=== PATIENT | male | born 1955 | race Caucasian/White ===

== ENCOUNTER 2025-02-16 21:30 | Inpatient (IN) | payer OTHER ==
[2025-02-16 22:21] LABS: #Basophils Less than 0.03 10x3/uL (0.0-0.2); #Eosinophils 0.03 10x3/uL (0.0-0.7); #Monocytes 0.36 10x3/uL (0.11-0.59); #Neutrophils 6.50 10x3/uL (1.40-6.50); %Basophils 0.3 % (0.0-1.0); %Eosinophils 0.4 % (0.0-10.0); %Lymphocytes 7.7 % (21.0-51.0); %Monocytes 4.8 % (0.0-10.0); %Neutrophils 86.5 % (42.0-75.0); Hematocrit 15.8 % (42.0-52.0); Hemoglobin 4.9 g/dL (14.0-18.0); Mean Corpuscular Hemoglobin 28.8 pg (27.0-31.0); Mean Corpuscular Volume 92.9 fL (78.0-98.0); Platelet Count 176 10x3/uL (130-400); Red Blood Cell (RBC) Count 1.70 mill/uL (4.70-6.10); White Blood Cell (WBC) Count 7.51 10x3/uL (4.8-10.8)
[2025-02-16] MEDS ORDERED: Pantoprazole 40 MG VIAL ONE (23:41)
[2025-02-17 01:34] LABS: ALT (SGPT) Less than 7 U/L (Less than 45); AST (SGOT) 12 U/L (11-34); Albumin 1.7 g/dL (3.1-4.5); Alkaline Phosphatase 27 U/L (40-110); Anion Gap 9 mmol/L (10-20); BUN (Urea Nitrogen) 17 mg/dL (8.4-25.7); Bilirubin, Total 0.1 mg/dL (0.3-1.2); CK (CPK) 42 U/L (30-200); Calc. Creatinine Clearance 0 mL/min (70-130); Calcium 4.6 mg/dL (7.8-10.44); Carbon Dioxide 12 mmol/L (23-31); Chloride 125 mmol/L (98-107); Globulin 1.8 g/dL (2.4-3.5); Glucose 58 mg/dL (80-115); Lipase 22 U/L (8-78); Potassium 1.6 mmol/L (3.5-5.1); Sodium 144 mmol/L (136-145)
[2025-02-17] MEDS ORDERED: Electrolyte Replacement Protocol 1 EACH FS SCH ×2 (02:30→02:45)
[2025-02-17] MEDS: Potassium Chloride 20 MEQ in Premix 1 BAG IVPB SCH (03:34)
[2025-02-17 03:50] LABS: Iron 23 ug/dL (65-175); Iron Binding Capacity, Total 326 mcg/dL (261-462)
[2025-02-17 03:51] LABS: #Basophils 0.05 10x3/uL (0.0-0.2); #Eosinophils Less than 0.03 10x3/uL (0.0-0.7); #Monocytes 0.67 10x3/uL (0.11-0.59); #Neutrophils 8.82 10x3/uL (1.40-6.50); %Basophils 0.5 % (0.0-1.0); %Eosinophils 0.1 % (0.0-10.0); %Lymphocytes 10.4 % (21.0-51.0); %Monocytes 6.3 % (0.0-10.0); %Neutrophils 82.4 % (42.0-75.0); Hematocrit 28.3 % (42.0-52.0); Hemoglobin 9.2 g/dL (14.0-18.0); Mean Corpuscular Hemoglobin 29.0 pg (27.0-31.0); Mean Corpuscular Volume 89.3 fL (78.0-98.0); Platelet Count 353 10x3/uL (130-400); Red Blood Cell (RBC) Count 3.17 mill/uL (4.70-6.10); White Blood Cell (WBC) Count 10.69 10x3/uL (4.8-10.8)
[2025-02-17 03:59] LABS: Anion Gap 17 mmol/L (10-20); BUN (Urea Nitrogen) 28 mg/dL (8.4-25.7); Calc. Creatinine Clearance 41 mL/min (70-130); Calcium 8.6 mg/dL (7.8-10.44); Carbon Dioxide 22 mmol/L (23-31); Chloride 110 mmol/L (98-107); Glucose 91 mg/dL (80-115); Magnesium 2.0 mg/dL (1.6-2.6); Potassium 2.6 mmol/L (3.5-5.1); Sodium 146 mmol/L (136-145)
[2025-02-17 04:18] LABS: Ferritin 26.71 ng/mL (22-322); Vitamin B12 410.0 pg/mL (211-911)
[2025-02-17] MEDS ORDERED: Pantoprazole 40 MG VIAL IVP SCH (09:00)
[2025-02-17] MEDS: Magnesium 2 GM/50 ML(in water) 2 GM in Premix 1 BAG IVPB SCH (09:27)
[2025-02-17] MEDS: Acetaminophen 325 MG TAB PO PRN (09:39)
[2025-02-17 09:56] LABS: #Basophils 0.07 10x3/uL (0.0-0.2); #Eosinophils 0.08 10x3/uL (0.0-0.7); #Monocytes 0.76 10x3/uL (0.11-0.59); #Neutrophils 9.03 10x3/uL (1.40-6.50); %Basophils 0.6 % (0.0-1.0); %Eosinophils 0.7 % (0.0-10.0); %Lymphocytes 9.9 % (21.0-51.0); %Monocytes 6.9 % (0.0-10.0); %Neutrophils 81.5 % (42.0-75.0); Hematocrit 31.1 % (42.0-52.0); Hemoglobin 10.0 g/dL (14.0-18.0); Mean Corpuscular Hemoglobin 28.6 pg (27.0-31.0); Mean Corpuscular Volume 88.9 fL (78.0-98.0); Platelet Count 337 10x3/uL (130-400); Red Blood Cell (RBC) Count 3.50 mill/uL (4.70-6.10); White Blood Cell (WBC) Count 11.08 10x3/uL (4.8-10.8)
[2025-02-17 10:15] LABS: Anion Gap 11 mmol/L (10-20); BUN (Urea Nitrogen) 28 mg/dL (8.4-25.7); Calc. Creatinine Clearance 48 mL/min (70-130); Calcium 8.9 mg/dL (7.8-10.44); Carbon Dioxide 24 mmol/L (23-31); Chloride 111 mmol/L (98-107); Glucose 116 mg/dL (80-115); Potassium 3.1 mmol/L (3.5-5.1); Sodium 143 mmol/L (136-145)
[2025-02-17 16:53] LABS: Hematocrit 30.6 % (42.0-52.0); Hemoglobin 9.9 g/dL (14.0-18.0)
[2025-02-17 17:41] LABS: ALT (SGPT) 10 U/L (Less than 45); AST (SGOT) 24 U/L (11-34); Albumin 3.1 g/dL (3.1-4.5); Alkaline Phosphatase 50 U/L (40-110); Anion Gap 10 mmol/L (10-20); BUN (Urea Nitrogen) 32 mg/dL (8.4-25.7); Bilirubin, Total 0.7 mg/dL (0.3-1.2); Calc. Creatinine Clearance 48 mL/min (70-130); Calcium 8.8 mg/dL (7.8-10.44); Carbon Dioxide 22 mmol/L (23-31); Chloride 114 mmol/L (98-107); Globulin 3.2 g/dL (2.4-3.5); Glucose 105 mg/dL (80-115); Magnesium 2.5 mg/dL (1.6-2.6); Potassium 3.3 mmol/L (3.5-5.1); Sodium 143 mmol/L (136-145)
[2025-02-18] MEDS: hydrALAZINE 20 MG/ML VIAL SLOW IVP SCH (00:08)
[2025-02-18] MEDS: cloNIDine 0.1 MG TAB PO SCH (01:57)
[2025-02-18 04:32] LABS: #Basophils 0.06 10x3/uL (0.0-0.2); #Eosinophils 0.04 10x3/uL (0.0-0.7); #Monocytes 0.92 10x3/uL (0.11-0.59); #Neutrophils 11.54 10x3/uL (1.40-6.50); %Basophils 0.4 % (0.0-1.0); %Eosinophils 0.3 % (0.0-10.0); %Lymphocytes 7.1 % (21.0-51.0); %Monocytes 6.8 % (0.0-10.0); %Neutrophils 85.0 % (42.0-75.0); Hematocrit 32.8 % (42.0-52.0); Hemoglobin 10.8 g/dL (14.0-18.0); Mean Corpuscular Hemoglobin 29.3 pg (27.0-31.0); Mean Corpuscular Volume 88.9 fL (78.0-98.0); Platelet Count 344 10x3/uL (130-400); Red Blood Cell (RBC) Count 3.69 mill/uL (4.70-6.10); White Blood Cell (WBC) Count 13.59 10x3/uL (4.8-10.8)
[2025-02-18 04:49] LABS: ALT (SGPT) 10 U/L (Less than 45); AST (SGOT) 31 U/L (11-34); Albumin 3.2 g/dL (3.1-4.5); Alkaline Phosphatase 52 U/L (40-110); Anion Gap 13 mmol/L (10-20); BUN (Urea Nitrogen) 21 mg/dL (8.4-25.7); Bilirubin, Total 0.8 mg/dL (0.3-1.2); Calc. Creatinine Clearance 75 mL/min (70-130); Calcium 8.6 mg/dL (7.8-10.44); Carbon Dioxide 24 mmol/L (23-31); Chloride 111 mmol/L (98-107); Globulin 3.4 g/dL (2.4-3.5); Glucose 108 mg/dL (80-115); Magnesium 2.0 mg/dL (1.6-2.6); Potassium 2.8 mmol/L (3.5-5.1); Sodium 145 mmol/L (136-145)
[2025-02-18] MEDS: Magnesium 2 GM/50 ML(in water) 2 GM in Premix 1 BAG IVPB SCH (09:52)
[2025-02-18] MEDS: Sertraline 25 MG TAB PO SCH (09:55)
[2025-02-18 13:55] LABS: Anion Gap 10 mmol/L (10-20); BUN (Urea Nitrogen) 19 mg/dL (8.4-25.7); Calc. Creatinine Clearance 86 mL/min (70-130); Calcium 8.7 mg/dL (7.8-10.44); Carbon Dioxide 22 mmol/L (23-31); Chloride 111 mmol/L (98-107); Glucose 99 mg/dL (80-115); Potassium 3.2 mmol/L (3.5-5.1); Sodium 140 mmol/L (136-145)
[2025-02-18] MEDS: Metoclopramide HCl 10 MG (2 mL) VIAL IVP SCH ×2 (15:42→21:37)
[2025-02-19 05:44] LABS: Magnesium 2.4 mg/dL (1.6-2.6); Potassium 3.3 mmol/L (3.5-5.1)
[2025-02-19 07:49] LABS: #Basophils 0.04 10x3/uL (0.0-0.2); #Eosinophils Less than 0.03 10x3/uL (0.0-0.7); #Monocytes 1.23 10x3/uL (0.11-0.59); #Neutrophils 13.57 10x3/uL (1.40-6.50); %Basophils 0.3 % (0.0-1.0); %Eosinophils 0.1 % (0.0-10.0); %Lymphocytes 5.9 % (21.0-51.0); %Monocytes 7.8 % (0.0-10.0); %Neutrophils 85.5 % (42.0-75.0); Hematocrit 33.4 % (42.0-52.0); Hemoglobin 10.6 g/dL (14.0-18.0); Mean Corpuscular Hemoglobin 28.7 pg (27.0-31.0); Mean Corpuscular Volume 90.5 fL (78.0-98.0); Platelet Count 350 10x3/uL (130-400); Red Blood Cell (RBC) Count 3.69 mill/uL (4.70-6.10); White Blood Cell (WBC) Count 15.85 10x3/uL (4.8-10.8)
[2025-02-19 08:05] LABS: Anion Gap 15 mmol/L (10-20); BUN (Urea Nitrogen) 17 mg/dL (8.4-25.7); Calc. Creatinine Clearance 78 mL/min (70-130); Calcium 9.4 mg/dL (7.8-10.44); Carbon Dioxide 20 mmol/L (23-31); Chloride 110 mmol/L (98-107); Glucose 111 mg/dL (80-115); Magnesium 2.3 mg/dL (1.6-2.6); Potassium 3.3 mmol/L (3.5-5.1); Sodium 142 mmol/L (136-145)
[2025-02-19] MEDS: Heparin 5,000 UNITS/ML VIAL SC SCH (08:37)
[2025-02-19] MEDS ORDERED: Iopamidol 370 76% 100 ML VIAL ONE (11:56)
[2025-02-19 16:32] VITALS: BMI 30.8
[2025-02-19] MEDS ORDERED: EPINEPHrine 1 MG/10 ML Abboject SYRINGE ONE (18:24)
[2025-02-19 18:27] LABS: Anion Gap 16 mmol/L (10-20); BUN (Urea Nitrogen) 20 mg/dL (8.4-25.7); Calc. Creatinine Clearance 83 mL/min (70-130); Calcium 9.6 mg/dL (7.8-10.44); Carbon Dioxide 20 mmol/L (23-31); Chloride 108 mmol/L (98-107); Glucose 135 mg/dL (80-115); Potassium 4.5 mmol/L (3.5-5.1); Sodium 139 mmol/L (136-145)
[2025-02-19] MEDS ORDERED: Fentanyl BOLUS 100 ML IVPB PRN (19:00)
[2025-02-19] MEDS ORDERED: Propofol BOLUS 1,000 MG/100 ML VIAL IV PRN (19:00)
[2025-02-19] MEDS ORDERED: Ventilator Sedation Protocol 1 EACH FS SCH (19:00)
[2025-02-19 19:12] LABS: #Basophils 0.03 10x3/uL (0.0-0.2); #Eosinophils Less than 0.03 10x3/uL (0.0-0.7); #Monocytes 0.88 10x3/uL (0.11-0.59); #Neutrophils 11.64 10x3/uL (1.40-6.50); %Basophils 0.2 % (0.0-1.0); %Eosinophils 0.1 % (0.0-10.0); %Lymphocytes 5.2 % (21.0-51.0); %Monocytes 6.4 % (0.0-10.0); %Neutrophils 85.0 % (42.0-75.0); Hematocrit 30.9 % (42.0-52.0); Hemoglobin 9.8 g/dL (14.0-18.0); Mean Corpuscular Hemoglobin 29.5 pg (27.0-31.0); Mean Corpuscular Volume 93.1 fL (78.0-98.0); Platelet Count 280 10x3/uL (130-400); Red Blood Cell (RBC) Count 3.32 mill/uL (4.70-6.10); White Blood Cell (WBC) Count 13.69 10x3/uL (4.8-10.8)
[2025-02-19] MEDS: Norepinephrine 8 MG/0.9% NS 250 ML IVPB SCH (19:30)
[2025-02-19 19:31] LABS: ALT (SGPT) 234 U/L (Less than 45); AST (SGOT) 347 U/L (11-34); Albumin 3.1 g/dL (3.1-4.5); Alkaline Phosphatase 59 U/L (40-110); Anion Gap 15 mmol/L (10-20); BUN (Urea Nitrogen) 23 mg/dL (8.4-25.7); Bilirubin, Total 1.1 mg/dL (0.3-1.2); Calc. Creatinine Clearance 77 mL/min (70-130); Calcium 8.7 mg/dL (7.8-10.44); Carbon Dioxide 17 mmol/L (23-31); Chloride 111 mmol/L (98-107); Globulin 3.3 g/dL (2.4-3.5); Glucose 193 mg/dL (80-115); Magnesium 2.3 mg/dL (1.6-2.6); Potassium 3.9 mmol/L (3.5-5.1); Sodium 139 mmol/L (136-145)
[2025-02-19] MEDS: Sodium Bicarb 50 MEQ/50 ML Abboject 8.4% SYRINGE IVP SCH (19:58)
[2025-02-19 21:08] LABS: Actual Bicarbonate (HCO3a) 19.3 mEq/L (22-28); Base Excess (BEa) -4.2 mEq/L (-2.0 to +3.0); CO2 Tension 29.8 mmHg (35.0-45.0); Calcium, Ionized (arterial) 1.14 mmol/L (1.12-1.30); Hematocrit-ABG 30 % (42.0-52.0); Hemoglobin (Hb) 10.3 g/dL (14.0-18.0); O2 Tension (PaO2), arterial 167.3 mmHg (> 80.0); Potassium - ABG Lab 4.29 mmol/L (3.70-5.30); pH, Arterial 7.429 (7.35-7.45)
[2025-02-19 21:10] LABS: Puncture Site Right Radial artery
[2025-02-20] MEDS: Enoxaparin 80 MG (0.8 mL) SYRINGE SC SCH ×2 (00:29→09:11)
[2025-02-20 07:07] LABS: #Basophils 0.05 10x3/uL (0.0-0.2); #Eosinophils 0.11 10x3/uL (0.0-0.7); #Monocytes 1.76 10x3/uL (0.11-0.59); #Neutrophils 10.44 10x3/uL (1.40-6.50); %Basophils 0.4 % (0.0-1.0); %Eosinophils 0.8 % (0.0-10.0); %Lymphocytes 7.2 % (21.0-51.0); %Monocytes 13.1 % (0.0-10.0); %Neutrophils 78.0 % (42.0-75.0); Hematocrit 29.7 % (42.0-52.0); Hemoglobin 9.2 g/dL (14.0-18.0); Mean Corpuscular Hemoglobin 29.0 pg (27.0-31.0); Mean Corpuscular Volume 93.7 fL (78.0-98.0); Platelet Count 245 10x3/uL (130-400); Red Blood Cell (RBC) Count 3.17 mill/uL (4.70-6.10); White Blood Cell (WBC) Count 13.40 10x3/uL (4.8-10.8)
[2025-02-20 07:21] LABS: Anion Gap 13 mmol/L (10-20); BUN (Urea Nitrogen) 21 mg/dL (8.4-25.7); Calc. Creatinine Clearance 71 mL/min (70-130); Calcium 8.3 mg/dL (7.8-10.44); Carbon Dioxide 17 mmol/L (23-31); Chloride 114 mmol/L (98-107); Glucose 83 mg/dL (80-115); Magnesium 2.0 mg/dL (1.6-2.6); Potassium 3.9 mmol/L (3.5-5.1); Sodium 140 mmol/L (136-145)
[2025-02-20 08:16] LABS: Actual Bicarbonate (HCO3a) 18.4 mEq/L (22-28); Base Excess (BEa) -6.6 mEq/L (-2.0 to +3.0); CO2 Tension 34.5 mmHg (35.0-45.0); Calcium, Ionized (arterial) 1.20 mmol/L (1.12-1.30); Hematocrit-ABG 32 % (42.0-52.0); Hemoglobin (Hb) 10.9 g/dL (14.0-18.0); Potassium - ABG Lab 4.03 mmol/L (3.70-5.30); pH, Arterial 7.344 (7.35-7.45)
[2025-02-20 08:18] LABS: O2 Tension (PaO2), arterial 52.7 mmHg (> 80.0); Puncture Site Right Radial artery
[2025-02-20] MEDS: predniSONE 20 MG TAB PO SCH (08:58)
[2025-02-20] MEDS: Pantoprazole 40 MG VIAL IVP SCH (09:12)
[2025-02-20] MEDS: VANCOMYCIN 1.75 GM/350 ML Premix BAG IVPB SCH (10:10)
[2025-02-21 06:37] LABS: Vancomycin, Random 16.2 ug/mL (See Comment)
[2025-02-21 07:27] LABS: Actual Bicarbonate (HCO3a) 19.5 mEq/L (22-28); Base Excess (BEa) -5.5 mEq/L (-2.0 to +3.0); CO2 Tension 36.3 mmHg (35.0-45.0); Calcium, Ionized (arterial) 1.22 mmol/L (1.12-1.30); Hematocrit-ABG 30 % (42.0-52.0); Hemoglobin (Hb) 10.3 g/dL (14.0-18.0); O2 Tension (PaO2), arterial 100.0 mmHg (> 80.0); Potassium - ABG Lab 3.81 mmol/L (3.70-5.30); pH, Arterial 7.348 (7.35-7.45)
[2025-02-21 07:29] LABS: ALV-art Gradient 211.125 mmHg (0-20); Puncture Site Right Radial artery
[2025-02-21] MEDS: Etomidate 40 MG (20 mL) VIAL IVP SCH (11:32)
[2025-02-21] MEDS: Rocuronium Bromide 10 MG/ML (10ML VIAL) IVPB SCH (11:35)
[2025-02-21] MEDS: EPINEPHrine 1 MG/10 ML Abboject SYRINGE IVP SCH (11:39)
[2025-02-21] MEDS: Sodium Bicarb 50 MEQ/50 ML Abboject 8.4% SYRINGE IVP SCH (11:41)
[2025-02-21] MEDS: Sodium Bicarb 50 MEQ/50 ML Abboject 8.4% SYRINGE ONE (11:56)
[2025-02-21 12:08] LABS: Actual Bicarbonate (HCO3a) 22.1 mEq/L (22-28); Base Excess (BEa) -3.1 mEq/L (-2.0 to +3.0); CO2 Tension 39.9 mmHg (35.0-45.0); Calcium, Ionized (arterial) 1.17 mmol/L (1.12-1.30); Hematocrit-ABG 29 % (42.0-52.0); Hemoglobin (Hb) 10.0 g/dL (14.0-18.0); O2 Tension (PaO2), arterial 211.7 mmHg (> 80.0); Potassium - ABG Lab 2.74 mmol/L (3.70-5.30); pH, Arterial 7.361 (7.35-7.45)
[2025-02-21 12:11] LABS: Puncture Site Right Radial artery
[2025-02-21 12:45] LABS: #Basophils 0.04 10x3/uL (0.0-0.2); #Eosinophils 0.06 10x3/uL (0.0-0.7); #Monocytes 0.84 10x3/uL (0.11-0.59); #Neutrophils 7.11 10x3/uL (1.40-6.50); %Basophils 0.4 % (0.0-1.0); %Eosinophils 0.7 % (0.0-10.0); %Lymphocytes 11.0 % (21.0-51.0); %Monocytes 9.2 % (0.0-10.0); %Neutrophils 77.8 % (42.0-75.0); Hematocrit 26.4 % (42.0-52.0); Hemoglobin 8.1 g/dL (14.0-18.0); Mean Corpuscular Hemoglobin 28.7 pg (27.0-31.0); Mean Corpuscular Volume 93.6 fL (78.0-98.0); Platelet Count 280 10x3/uL (130-400); Red Blood Cell (RBC) Count 2.82 mill/uL (4.70-6.10); White Blood Cell (WBC) Count 9.13 10x3/uL (4.8-10.8)
[2025-02-21 13:01] LABS: INR-International Normal Ratio 1.4; Prothrombin Time 17.3 sec (12.0-14.7)
[2025-02-21 13:22] LABS: ALT (SGPT) 121 U/L (Less than 45); AST (SGOT) 113 U/L (11-34); Albumin 2.2 g/dL (3.1-4.5); Alkaline Phosphatase 77 U/L (40-110); Anion Gap 18 mmol/L (10-20); BUN (Urea Nitrogen) 28 mg/dL (8.4-25.7); Bilirubin, Total 1.1 mg/dL (0.3-1.2); Calc. Creatinine Clearance 67 mL/min (70-130); Calcium 8.3 mg/dL (7.8-10.44); Carbon Dioxide 21 mmol/L (23-31); Chloride 113 mmol/L (98-107); Globulin 3.2 g/dL (2.4-3.5); Glucose 109 mg/dL (80-115); Magnesium 2.8 mg/dL (1.6-2.6); Potassium 2.8 mmol/L (3.5-5.1); Sodium 149 mmol/L (136-145)
[2025-02-21] MEDS: Pantoprazole 80 MG, Admixture Fee 1 EACH in Sodium Chloride 0.9% 100 ML IVPB SCH (14:21)
[2025-02-21] MEDS: Potassium Chloride 20 MEQ in Premix 1 BAG IVPB SCH (16:26)
[2025-02-22 00:49] LABS: Potassium 3.7 mmol/L (3.5-5.1)
[2025-02-22 06:39] LABS: #Basophils 0.05 10x3/uL (0.0-0.2); #Eosinophils 0.25 10x3/uL (0.0-0.7); #Monocytes 0.98 10x3/uL (0.11-0.59); #Neutrophils 9.61 10x3/uL (1.40-6.50); %Basophils 0.4 % (0.0-1.0); %Eosinophils 2.1 % (0.0-10.0); %Lymphocytes 6.1 % (21.0-51.0); %Monocytes 8.4 % (0.0-10.0); %Neutrophils 82.6 % (42.0-75.0); Hematocrit 21.0 % (42.0-52.0); Hemoglobin 6.6 g/dL (14.0-18.0); Mean Corpuscular Hemoglobin 28.9 pg (27.0-31.0); Mean Corpuscular Volume 92.1 fL (78.0-98.0); Platelet Count 288 10x3/uL (130-400); Red Blood Cell (RBC) Count 2.28 mill/uL (4.70-6.10); White Blood Cell (WBC) Count 11.65 10x3/uL (4.8-10.8)
[2025-02-22 07:00] LABS: Anion Gap 18 mmol/L (10-20); BUN (Urea Nitrogen) 27 mg/dL (8.4-25.7); Calc. Creatinine Clearance 95 mL/min (70-130); Calcium 7.9 mg/dL (7.8-10.44); Carbon Dioxide 20 mmol/L (23-31); Chloride 115 mmol/L (98-107); Glucose 87 mg/dL (80-115); Potassium 3.9 mmol/L (3.5-5.1); Sodium 149 mmol/L (136-145)
[2025-02-22 10:45] LABS: Hematocrit 24.9 % (42.0-52.0); Hemoglobin 7.7 g/dL (14.0-18.0)
[2025-02-22 11:03] LABS: Magnesium 2.1 mg/dL (1.6-2.6)
[2025-02-22 16:14] LABS: Hematocrit 31.1 % (42.0-52.0); Hemoglobin 10.0 g/dL (14.0-18.0)
[2025-02-23 04:05] LABS: #Basophils 0.08 10x3/uL (0.0-0.2); #Eosinophils 0.53 10x3/uL (0.0-0.7); #Monocytes 0.91 10x3/uL (0.11-0.59); #Neutrophils 8.63 10x3/uL (1.40-6.50); %Basophils 0.7 % (0.0-1.0); %Eosinophils 4.8 % (0.0-10.0); %Lymphocytes 8.2 % (21.0-51.0); %Monocytes 8.2 % (0.0-10.0); %Neutrophils 77.8 % (42.0-75.0); Hematocrit 28.2 % (42.0-52.0); Hemoglobin 9.2 g/dL (14.0-18.0); Mean Corpuscular Hemoglobin 29.3 pg (27.0-31.0); Mean Corpuscular Volume 89.8 fL (78.0-98.0); Platelet Count 291 10x3/uL (130-400); Red Blood Cell (RBC) Count 3.14 mill/uL (4.70-6.10); White Blood Cell (WBC) Count 11.09 10x3/uL (4.8-10.8)
[2025-02-23 04:29] LABS: Vancomycin, Random 18.4 ug/mL (See Comment)
[2025-02-23 04:32] LABS: ALT (SGPT) 69 U/L (Less than 45); AST (SGOT) 54 U/L (11-34); Albumin 1.9 g/dL (3.1-4.5); Alkaline Phosphatase 73 U/L (40-110); Anion Gap 16 mmol/L (10-20); BUN (Urea Nitrogen) 25 mg/dL (8.4-25.7); Bilirubin, Total 1.7 mg/dL (0.3-1.2); Calc. Creatinine Clearance 83 mL/min (70-130); Calcium 8.3 mg/dL (7.8-10.44); Carbon Dioxide 20 mmol/L (23-31); Chloride 117 mmol/L (98-107); Globulin 3.1 g/dL (2.4-3.5); Glucose 83 mg/dL (80-115); Magnesium 2.0 mg/dL (1.6-2.6); Potassium 3.5 mmol/L (3.5-5.1); Sodium 149 mmol/L (136-145)
[2025-02-23] MEDS ORDERED: Etomidate 40 MG (20 mL) VIAL ONE (13:39)
[2025-02-23] MEDS ORDERED: PROPOFOL 200 MG/20 ML VIAL ONE (13:45)
[2025-02-23] MEDS ORDERED: PHENYLEPHRINE-NS 100 MCG/ML 10 ML SYRINGE ONE (13:45)
[2025-02-23] MEDS ORDERED: Rocuronium Bromide 10 MG/ML (10ML VIAL) ONE (13:55)
[2025-02-23] MEDS: Pantoprazole 40 MG VIAL IVP SCH (22:08)
[2025-02-24] MEDS: niCARdipine 25 MG in Sodium Chloride 0.9% 250 ML 250 ML IVPB SCH (09:56)
[2025-02-24] MEDS: Cefepime 2 GM VIAL ONE ×2 (10:29→15:06)
[2025-02-25] MEDS: Albumin 25% 25 GM (100 mL) BOT IVPB SCH (01:21)
[2025-02-25 05:19] LABS: #Basophils 0.05 10x3/uL (0.0-0.2); #Eosinophils 0.31 10x3/uL (0.0-0.7); #Monocytes 0.88 10x3/uL (0.11-0.59); #Neutrophils 6.96 10x3/uL (1.40-6.50); %Basophils 0.6 % (0.0-1.0); %Eosinophils 3.4 % (0.0-10.0); %Lymphocytes 9.4 % (21.0-51.0); %Monocytes 9.7 % (0.0-10.0); %Neutrophils 76.5 % (42.0-75.0); Hematocrit 32.7 % (42.0-52.0); Hemoglobin 9.9 g/dL (14.0-18.0); Mean Corpuscular Hemoglobin 29.1 pg (27.0-31.0); Mean Corpuscular Volume 96.2 fL (78.0-98.0); Platelet Count 323 10x3/uL (130-400); Red Blood Cell (RBC) Count 3.40 mill/uL (4.70-6.10); White Blood Cell (WBC) Count 9.09 10x3/uL (4.8-10.8)
[2025-02-25 05:40] LABS: Anion Gap 14 mmol/L (10-20); BUN (Urea Nitrogen) 23 mg/dL (8.4-25.7); Calc. Creatinine Clearance 103 mL/min (70-130); Calcium 8.7 mg/dL (7.8-10.44); Carbon Dioxide 20 mmol/L (23-31); Chloride 116 mmol/L (98-107); Glucose 84 mg/dL (80-115); Potassium 3.9 mmol/L (3.5-5.1); Sodium 146 mmol/L (136-145)
[2025-02-25] MEDS: Furosemide 40 MG (4 mL) VIAL IVP SCH (16:28)
[2025-02-25] MEDS: Senokot S 8.6-50 MG TAB PO SCH (19:44)
[2025-02-25] MEDS: hydrALAZINE 20 MG/ML VIAL SLOW IVP PRN (19:45)
[2025-02-26 03:52] LABS: #Basophils Less than 0.03 10x3/uL (0.0-0.2); #Eosinophils Less than 0.03 10x3/uL (0.0-0.7); #Monocytes 0.20 10x3/uL (0.11-0.59); #Neutrophils 10.06 10x3/uL (1.40-6.50); %Basophils 0.2 % (0.0-1.0); %Eosinophils 0.0 % (0.0-10.0); %Lymphocytes 3.6 % (21.0-51.0); %Monocytes 1.9 % (0.0-10.0); %Neutrophils 93.7 % (42.0-75.0); Hematocrit 35.5 % (42.0-52.0); Hemoglobin 11.2 g/dL (14.0-18.0); Mean Corpuscular Hemoglobin 28.9 pg (27.0-31.0); Mean Corpuscular Volume 91.5 fL (78.0-98.0); Platelet Count 420 10x3/uL (130-400); Red Blood Cell (RBC) Count 3.88 mill/uL (4.70-6.10); White Blood Cell (WBC) Count 10.73 10x3/uL (4.8-10.8)
[2025-02-26 04:16] LABS: Anion Gap 20 mmol/L (10-20); BUN (Urea Nitrogen) 25 mg/dL (8.4-25.7); Calc. Creatinine Clearance 104 mL/min (70-130); Calcium 8.7 mg/dL (7.8-10.44); Carbon Dioxide 20 mmol/L (23-31); Chloride 111 mmol/L (98-107); Glucose 128 mg/dL (80-115); Magnesium 2.0 mg/dL (1.6-2.6); Potassium 3.5 mmol/L (3.5-5.1); Sodium 147 mmol/L (136-145)
[2025-02-26] MEDS: Magnesium 2 GM/50 ML(in water) 2 GM in Premix 1 BAG IVPB SCH (09:23)
[2025-02-26] MEDS: DC Sedation Protocol FS ONE ×2 (12:46)
[2025-02-26] MEDS: Potassium Chloride 20 MEQ in Premix 1 BAG IVPB SCH (12:48)
[2025-02-26 21:28] LABS: Potassium 3.6 mmol/L (3.5-5.1)
[2025-02-27 08:16] LABS: #Basophils Less than 0.03 10x3/uL (0.0-0.2); #Eosinophils Less than 0.03 10x3/uL (0.0-0.7); #Monocytes 0.63 10x3/uL (0.11-0.59); #Neutrophils 16.41 10x3/uL (1.40-6.50); %Basophils 0.1 % (0.0-1.0); %Eosinophils 0.0 % (0.0-10.0); %Lymphocytes 2.5 % (21.0-51.0); %Monocytes 3.6 % (0.0-10.0); %Neutrophils 93.1 % (42.0-75.0); Hematocrit 32.8 % (42.0-52.0); Hemoglobin 10.8 g/dL (14.0-18.0); Mean Corpuscular Hemoglobin 29.6 pg (27.0-31.0); Mean Corpuscular Volume 89.9 fL (78.0-98.0); Platelet Count 425 10x3/uL (130-400); Red Blood Cell (RBC) Count 3.65 mill/uL (4.70-6.10); White Blood Cell (WBC) Count 17.62 10x3/uL (4.8-10.8)
[2025-02-27 08:35] LABS: Anion Gap 15 mmol/L (10-20); BUN (Urea Nitrogen) 30 mg/dL (8.4-25.7); Calc. Creatinine Clearance 97 mL/min (70-130); Calcium 8.7 mg/dL (7.8-10.44); Carbon Dioxide 24 mmol/L (23-31); Chloride 112 mmol/L (98-107); Glucose 120 mg/dL (80-115); Magnesium 2.4 mg/dL (1.6-2.6); Potassium 3.5 mmol/L (3.5-5.1); Sodium 147 mmol/L (136-145)
[2025-02-27] MEDS: Enoxaparin 40 MG (0.4 mL) SYRINGE SC SCH (09:33)
[2025-02-27] MEDS: niCARdipine 25 MG in Sodium Chloride 0.9% 250 ML 250 ML IVPB SCH (14:59)
[2025-02-28 04:11] LABS: #Basophils Less than 0.03 10x3/uL (0.0-0.2); #Eosinophils Less than 0.03 10x3/uL (0.0-0.7); #Monocytes 0.57 10x3/uL (0.11-0.59); #Neutrophils 14.29 10x3/uL (1.40-6.50); %Basophils 0.1 % (0.0-1.0); %Eosinophils 0.0 % (0.0-10.0); %Lymphocytes 2.1 % (21.0-51.0); %Monocytes 3.7 % (0.0-10.0); %Neutrophils 93.4 % (42.0-75.0); Hematocrit 34.9 % (42.0-52.0); Hemoglobin 11.1 g/dL (14.0-18.0); Mean Corpuscular Hemoglobin 28.9 pg (27.0-31.0); Mean Corpuscular Volume 90.9 fL (78.0-98.0); Platelet Count 431 10x3/uL (130-400); Red Blood Cell (RBC) Count 3.84 mill/uL (4.70-6.10); White Blood Cell (WBC) Count 15.29 10x3/uL (4.8-10.8)
[2025-02-28 04:32] LABS: Anion Gap 14 mmol/L (10-20); BUN (Urea Nitrogen) 25 mg/dL (8.4-25.7); Calc. Creatinine Clearance 117 mL/min (70-130); Calcium 8.3 mg/dL (7.8-10.44); Carbon Dioxide 26 mmol/L (23-31); Chloride 111 mmol/L (98-107); Glucose 152 mg/dL (80-115); Potassium 3.2 mmol/L (3.5-5.1); Sodium 148 mmol/L (136-145)
[2025-02-28 04:36] LABS: ALT (SGPT) 73 U/L (Less than 45); AST (SGOT) 106 U/L (11-34); Albumin 2.5 g/dL (3.1-4.5); Alkaline Phosphatase 150 U/L (40-110); Bilirubin, Direct 0.8 mg/dL (0.1-0.3); Bilirubin, Total 1.3 mg/dL (0.3-1.2)
[2025-02-28 05:46] LABS: Actual Bicarbonate (HCO3v) 29.9 mEq/L (22-28); Base Excess 6.3 mEq/L (-2.0 to +3.0); Calcium, Ionized (venous) 1.07 mmol/L (1.16-1.32); Chloride (VBG) 110 mmol/L (98-106); Hematocrit-VBG 34 % (42.0-52.0); Hemoglobin (Hb) 11.7 g/dL (12.6-17.4); Potassium (VBG) 3.25 mmol/L (3.70-5.30); Sodium 148 mmol/L (133-146)
[2025-02-28] MEDS: Potassium Bicarbonate/Cit Ac 20 MEQ TAB PER TUBE SCH ×2 (08:57→16:58)
[2025-02-28] MEDS: Enoxaparin 40 MG (0.4 mL) SYRINGE SC SCH (10:17)
[2025-02-28] MEDS ORDERED: Sodium Bicarbonate Tab 325 MG TAB PER TUBE PRN (14:00)
[2025-02-28] MEDS ORDERED: Pancrelipase DR 12,000 1 CAP FS PRN (14:00)
[2025-02-28 15:31] LABS: Potassium 3.3 mmol/L (3.5-5.1)
[2025-02-28] MEDS: Ondansetron PF 4 MG/2 ML Vial IVP PRN (16:57)
[2025-02-28] MEDS: Senokot S 8.6-50 MG TAB PO SCH (19:26)
[2025-03-01 06:07] LABS: #Basophils Less than 0.03 10x3/uL (0.0-0.2); #Eosinophils Less than 0.03 10x3/uL (0.0-0.7); #Monocytes 1.13 10x3/uL (0.11-0.59); #Neutrophils 12.92 10x3/uL (1.40-6.50); %Basophils 0.1 % (0.0-1.0); %Eosinophils 0.0 % (0.0-10.0); %Lymphocytes 3.4 % (21.0-51.0); %Monocytes 7.7 % (0.0-10.0); %Neutrophils 88.0 % (42.0-75.0); Hematocrit 32.0 % (42.0-52.0); Hemoglobin 10.3 g/dL (14.0-18.0); Mean Corpuscular Hemoglobin 29.0 pg (27.0-31.0); Mean Corpuscular Volume 90.1 fL (78.0-98.0); Platelet Count 310 10x3/uL (130-400); Red Blood Cell (RBC) Count 3.55 mill/uL (4.70-6.10); White Blood Cell (WBC) Count 14.68 10x3/uL (4.8-10.8)
[2025-03-01 06:24] LABS: ALT (SGPT) 67 U/L (Less than 45); AST (SGOT) 72 U/L (11-34); Albumin 2.3 g/dL (3.1-4.5); Alkaline Phosphatase 110 U/L (40-110); Anion Gap 12 mmol/L (10-20); BUN (Urea Nitrogen) 28 mg/dL (8.4-25.7); Bilirubin, Total 0.9 mg/dL (0.3-1.2); Calc. Creatinine Clearance 120 mL/min (70-130); Calcium 7.9 mg/dL (7.8-10.44); Carbon Dioxide 27 mmol/L (23-31); Chloride 111 mmol/L (98-107); Globulin 3.3 g/dL (2.4-3.5); Glucose 119 mg/dL (80-115); Potassium 4.2 mmol/L (3.5-5.1); Sodium 146 mmol/L (136-145)
[2025-03-01] MEDS ORDERED: Magnesium 2 GM/50 ML(in water) 2 GM in Premix 1 BAG IVPB PRN (13:30)
[2025-03-01] MEDS ORDERED: PHOS-NAK 1 PKT PACK PO PRN (13:30)
[2025-03-01] MEDS: QUEtiapine 25 MG TAB PO PRN (20:14)
[2025-03-01 20:18] LABS: Magnesium 2.4 mg/dL (1.6-2.6)
[2025-03-02 04:46] LABS: #Basophils Less than 0.03 10x3/uL (0.0-0.2); #Eosinophils Less than 0.03 10x3/uL (0.0-0.7); #Monocytes 0.72 10x3/uL (0.11-0.59); #Neutrophils 12.85 10x3/uL (1.40-6.50); %Basophils 0.1 % (0.0-1.0); %Eosinophils 0.0 % (0.0-10.0); %Lymphocytes 2.8 % (21.0-51.0); %Monocytes 5.1 % (0.0-10.0); %Neutrophils 91.1 % (42.0-75.0); Hematocrit 35.0 % (42.0-52.0); Hemoglobin 10.8 g/dL (14.0-18.0); Mean Corpuscular Hemoglobin 28.5 pg (27.0-31.0); Mean Corpuscular Volume 92.3 fL (78.0-98.0); Platelet Count 358 10x3/uL (130-400); Red Blood Cell (RBC) Count 3.79 mill/uL (4.70-6.10); White Blood Cell (WBC) Count 14.10 10x3/uL (4.8-10.8)
[2025-03-02 05:25] LABS: ALT (SGPT) 73 U/L (Less than 45); AST (SGOT) 67 U/L (11-34); Albumin 2.6 g/dL (3.1-4.5); Alkaline Phosphatase 116 U/L (40-110); Anion Gap 10 mmol/L (10-20); BUN (Urea Nitrogen) 29 mg/dL (8.4-25.7); Bilirubin, Total 0.8 mg/dL (0.3-1.2); Calc. Creatinine Clearance 108 mL/min (70-130); Calcium 8.5 mg/dL (7.8-10.44); Carbon Dioxide 32 mmol/L (23-31); Chloride 107 mmol/L (98-107); Globulin 3.5 g/dL (2.4-3.5); Glucose 197 mg/dL (80-115); Potassium 3.7 mmol/L (3.5-5.1); Sodium 145 mmol/L (136-145)
[2025-03-02] MEDS: QUEtiapine 25 MG TAB PO SCH ×2 (12:46→20:42)
[2025-03-02] MEDS ORDERED: Etomidate 40 MG (20 mL) VIAL ONE (13:47)
[2025-03-02] MEDS ORDERED: Rocuronium Bromide 10 MG/ML (10ML VIAL) ONE (13:47)
[2025-03-02] MEDS: Tranexamic Acid 1,000 MG/10 ML VIAL IVP SCH (14:05)
[2025-03-02 14:50] LABS: Actual Bicarbonate (HCO3a) 25.2 mEq/L (22-28); Base Excess (BEa) 1.4 mEq/L (-2.0 to +3.0); CO2 Tension 36.6 mmHg (35.0-45.0); Calcium, Ionized (arterial) 1.13 mmol/L (1.12-1.30); Hematocrit-ABG 35 % (42.0-52.0); Hemoglobin (Hb) 12.0 g/dL (14.0-18.0); O2 Tension (PaO2), arterial 112.6 mmHg (> 80.0); Potassium - ABG Lab 3.61 mmol/L (3.70-5.30); pH, Arterial 7.455 (7.35-7.45)
[2025-03-02 14:51] LABS: Puncture Site Right Radial artery
[2025-03-02] MEDS ORDERED: DISCONTINUE PREVIOUS NARCOTIC PAIN MEDICATIONS AND BENZODIAZEPINES FS SCH (15:15)
[2025-03-02] MEDS ORDERED: Propofol BOLUS 1,000 MG/100 ML VIAL IV PRN (15:15)
[2025-03-02] MEDS ORDERED: Fentanyl BOLUS 100 ML IVPB PRN (15:15)
[2025-03-02 16:17] LABS: #Basophils Less than 0.03 10x3/uL (0.0-0.2); #Eosinophils Less than 0.03 10x3/uL (0.0-0.7); #Monocytes 0.77 10x3/uL (0.11-0.59); #Neutrophils 16.08 10x3/uL (1.40-6.50); %Basophils 0.1 % (0.0-1.0); %Eosinophils 0.0 % (0.0-10.0); %Lymphocytes 1.8 % (21.0-51.0); %Monocytes 4.4 % (0.0-10.0); %Neutrophils 92.8 % (42.0-75.0); Hematocrit 32.1 % (42.0-52.0); Hemoglobin 10.1 g/dL (14.0-18.0); Mean Corpuscular Hemoglobin 29.0 pg (27.0-31.0); Mean Corpuscular Volume 92.2 fL (78.0-98.0); Platelet Count 285 10x3/uL (130-400); Red Blood Cell (RBC) Count 3.48 mill/uL (4.70-6.10); White Blood Cell (WBC) Count 17.33 10x3/uL (4.8-10.8)
[2025-03-02 16:31] LABS: Anion Gap 14 mmol/L (10-20); BUN (Urea Nitrogen) 29 mg/dL (8.4-25.7); Calc. Creatinine Clearance 118 mL/min (70-130); Calcium 8.2 mg/dL (7.8-10.44); Carbon Dioxide 28 mmol/L (23-31); Chloride 108 mmol/L (98-107); Glucose 147 mg/dL (80-115); Potassium 3.7 mmol/L (3.5-5.1); Sodium 146 mmol/L (136-145)
[2025-03-03] MEDS: Albumin 25% 25 GM (100 mL) BOT IVPB SCH (00:07)
[2025-03-03 03:24] LABS: #Basophils Less than 0.03 10x3/uL (0.0-0.2); #Eosinophils Less than 0.03 10x3/uL (0.0-0.7); #Monocytes 0.33 10x3/uL (0.11-0.59); #Neutrophils 8.30 10x3/uL (1.40-6.50); %Basophils 0.0 % (0.0-1.0); %Eosinophils 0.0 % (0.0-10.0); %Lymphocytes 4.8 % (21.0-51.0); %Monocytes 3.6 % (0.0-10.0); %Neutrophils 91.2 % (42.0-75.0); Hematocrit 26.6 % (42.0-52.0); Hemoglobin 8.4 g/dL (14.0-18.0); Mean Corpuscular Hemoglobin 28.8 pg (27.0-31.0); Mean Corpuscular Volume 91.1 fL (78.0-98.0); Platelet Count 240 10x3/uL (130-400); Red Blood Cell (RBC) Count 2.92 mill/uL (4.70-6.10); White Blood Cell (WBC) Count 9.11 10x3/uL (4.8-10.8)
[2025-03-03 03:37] LABS: INR-International Normal Ratio 1.3; Prothrombin Time 16.5 sec (12.0-14.7)
[2025-03-03 03:44] LABS: Anion Gap 13 mmol/L (10-20); BUN (Urea Nitrogen) 34 mg/dL (8.4-25.7); Calc. Creatinine Clearance 106 mL/min (70-130); Calcium 7.9 mg/dL (7.8-10.44); Carbon Dioxide 28 mmol/L (23-31); Chloride 109 mmol/L (98-107); Glucose 122 mg/dL (80-115); Potassium 3.7 mmol/L (3.5-5.1); Sodium 146 mmol/L (136-145)
[2025-03-03] MEDS: Losartan 25 MG TAB PO SCH (09:27)
[2025-03-03 22:45] LABS: #Basophils Less than 0.03 10x3/uL (0.0-0.2); #Eosinophils Less than 0.03 10x3/uL (0.0-0.7); #Monocytes 0.52 10x3/uL (0.11-0.59); #Neutrophils 11.29 10x3/uL (1.40-6.50); %Basophils 0.1 % (0.0-1.0); %Eosinophils 0.0 % (0.0-10.0); %Lymphocytes 5.0 % (21.0-51.0); %Monocytes 4.2 % (0.0-10.0); %Neutrophils 90.4 % (42.0-75.0); Hematocrit 32.0 % (42.0-52.0); Hemoglobin 9.9 g/dL (14.0-18.0); Mean Corpuscular Hemoglobin 28.9 pg (27.0-31.0); Mean Corpuscular Volume 93.3 fL (78.0-98.0); Platelet Count 278 10x3/uL (130-400); Red Blood Cell (RBC) Count 3.43 mill/uL (4.70-6.10); White Blood Cell (WBC) Count 12.49 10x3/uL (4.8-10.8)
[2025-03-04 04:47] LABS: Anion Gap 12 mmol/L (10-20); BUN (Urea Nitrogen) 39 mg/dL (8.4-25.7); Calc. Creatinine Clearance 92 mL/min (70-130); Calcium 8.0 mg/dL (7.8-10.44); Carbon Dioxide 25 mmol/L (23-31); Chloride 110 mmol/L (98-107); Glucose 118 mg/dL (80-115); Potassium 3.6 mmol/L (3.5-5.1); Sodium 143 mmol/L (136-145)
[2025-03-05 03:28] LABS: #Basophils Less than 0.03 10x3/uL (0.0-0.2); #Eosinophils Less than 0.03 10x3/uL (0.0-0.7); #Monocytes 0.27 10x3/uL (0.11-0.59); #Neutrophils 13.11 10x3/uL (1.40-6.50); %Basophils 0.1 % (0.0-1.0); %Eosinophils 0.0 % (0.0-10.0); %Lymphocytes 2.5 % (21.0-51.0); %Monocytes 2.0 % (0.0-10.0); %Neutrophils 94.9 % (42.0-75.0); Hematocrit 31.4 % (42.0-52.0); Hemoglobin 9.7 g/dL (14.0-18.0); Mean Corpuscular Hemoglobin 28.5 pg (27.0-31.0); Mean Corpuscular Volume 92.4 fL (78.0-98.0); Platelet Count 306 10x3/uL (130-400); Red Blood Cell (RBC) Count 3.40 mill/uL (4.70-6.10); White Blood Cell (WBC) Count 13.81 10x3/uL (4.8-10.8)
[2025-03-05 03:50] LABS: Anion Gap 12 mmol/L (10-20); BUN (Urea Nitrogen) 32 mg/dL (8.4-25.7); Calc. Creatinine Clearance 109 mL/min (70-130); Calcium 8.2 mg/dL (7.8-10.44); Carbon Dioxide 24 mmol/L (23-31); Chloride 112 mmol/L (98-107); Glucose 148 mg/dL (80-115); Potassium 3.8 mmol/L (3.5-5.1); Sodium 144 mmol/L (136-145)
[2025-03-06 03:36] LABS: #Basophils Less than 0.03 10x3/uL (0.0-0.2); #Eosinophils Less than 0.03 10x3/uL (0.0-0.7); #Monocytes 0.38 10x3/uL (0.11-0.59); #Neutrophils 16.02 10x3/uL (1.40-6.50); %Basophils 0.1 % (0.0-1.0); %Eosinophils 0.0 % (0.0-10.0); %Lymphocytes 2.8 % (21.0-51.0); %Monocytes 2.2 % (0.0-10.0); %Neutrophils 94.1 % (42.0-75.0); Hematocrit 35.1 % (42.0-52.0); Hemoglobin 11.4 g/dL (14.0-18.0); Mean Corpuscular Hemoglobin 29.3 pg (27.0-31.0); Mean Corpuscular Volume 90.2 fL (78.0-98.0); Platelet Count 361 10x3/uL (130-400); Red Blood Cell (RBC) Count 3.89 mill/uL (4.70-6.10); White Blood Cell (WBC) Count 17.03 10x3/uL (4.8-10.8)
[2025-03-06 03:48] LABS: Anion Gap 13 mmol/L (10-20); BUN (Urea Nitrogen) 22 mg/dL (8.4-25.7); Calc. Creatinine Clearance 126 mL/min (70-130); Calcium 8.7 mg/dL (7.8-10.44); Carbon Dioxide 25 mmol/L (23-31); Chloride 108 mmol/L (98-107); Glucose 112 mg/dL (80-115); Potassium 3.3 mmol/L (3.5-5.1); Sodium 143 mmol/L (136-145)
[2025-03-06 11:19] LABS: Potassium 3.7 mmol/L (3.5-5.1)
[2025-03-07 04:02] LABS: #Basophils Less than 0.03 10x3/uL (0.0-0.2); #Eosinophils 0.05 10x3/uL (0.0-0.7); #Monocytes 1.81 10x3/uL (0.11-0.59); #Neutrophils 14.55 10x3/uL (1.40-6.50); %Basophils 0.1 % (0.0-1.0); %Eosinophils 0.3 % (0.0-10.0); %Lymphocytes 8.0 % (21.0-51.0); %Monocytes 10.1 % (0.0-10.0); %Neutrophils 81.1 % (42.0-75.0); Hematocrit 37.0 % (42.0-52.0); Hemoglobin 12.0 g/dL (14.0-18.0); Mean Corpuscular Hemoglobin 28.8 pg (27.0-31.0); Mean Corpuscular Volume 88.7 fL (78.0-98.0); Platelet Count 475 10x3/uL (130-400); Red Blood Cell (RBC) Count 4.17 mill/uL (4.70-6.10); White Blood Cell (WBC) Count 17.94 10x3/uL (4.8-10.8)
[2025-03-07 04:10] LABS: Anion Gap 17 mmol/L (10-20); BUN (Urea Nitrogen) 20 mg/dL (8.4-25.7); Calc. Creatinine Clearance 103 mL/min (70-130); Calcium 8.8 mg/dL (7.8-10.44); Carbon Dioxide 23 mmol/L (23-31); Chloride 106 mmol/L (98-107); Glucose 105 mg/dL (80-115); Potassium 3.5 mmol/L (3.5-5.1); Sodium 142 mmol/L (136-145)
[2025-03-07] MEDS: Sertraline 25 MG TAB PO SCH (09:26)
[2025-03-08 04:41] LABS: #Basophils Less than 0.03 10x3/uL (0.0-0.2); #Eosinophils 0.06 10x3/uL (0.0-0.7); #Monocytes 1.49 10x3/uL (0.11-0.59); #Neutrophils 12.73 10x3/uL (1.40-6.50); %Basophils 0.1 % (0.0-1.0); %Eosinophils 0.4 % (0.0-10.0); %Lymphocytes 6.1 % (21.0-51.0); %Monocytes 9.7 % (0.0-10.0); %Neutrophils 83.2 % (42.0-75.0); Hematocrit 35.6 % (42.0-52.0); Hemoglobin 11.3 g/dL (14.0-18.0); Mean Corpuscular Hemoglobin 29.0 pg (27.0-31.0); Mean Corpuscular Volume 91.3 fL (78.0-98.0); Platelet Count 470 10x3/uL (130-400); Red Blood Cell (RBC) Count 3.90 mill/uL (4.70-6.10); White Blood Cell (WBC) Count 15.30 10x3/uL (4.8-10.8)
[2025-03-08 04:57] LABS: Anion Gap 14 mmol/L (10-20); BUN (Urea Nitrogen) 16 mg/dL (8.4-25.7); Calc. Creatinine Clearance 110 mL/min (70-130); Calcium 8.9 mg/dL (7.8-10.44); Carbon Dioxide 25 mmol/L (23-31); Chloride 105 mmol/L (98-107); Glucose 105 mg/dL (80-115); Potassium 3.1 mmol/L (3.5-5.1); Sodium 141 mmol/L (136-145)
[2025-03-08] MEDS: Potassium Chloride 20 MEQ in Premix 1 BAG IVPB PRN (11:29)
[2025-03-08] MEDS: Scopolamine 1 mg/72 hour Patch TD SCH (19:09)
[2025-03-09 04:23] LABS: #Basophils Less than 0.03 10x3/uL (0.0-0.2); #Eosinophils 0.04 10x3/uL (0.0-0.7); #Monocytes 1.32 10x3/uL (0.11-0.59); #Neutrophils 14.54 10x3/uL (1.40-6.50); %Basophils 0.1 % (0.0-1.0); %Eosinophils 0.2 % (0.0-10.0); %Lymphocytes 4.9 % (21.0-51.0); %Monocytes 7.9 % (0.0-10.0); %Neutrophils 86.5 % (42.0-75.0); Hematocrit 35.4 % (42.0-52.0); Hemoglobin 11.2 g/dL (14.0-18.0); Mean Corpuscular Hemoglobin 28.5 pg (27.0-31.0); Mean Corpuscular Volume 90.1 fL (78.0-98.0); Platelet Count 473 10x3/uL (130-400); Red Blood Cell (RBC) Count 3.93 mill/uL (4.70-6.10); White Blood Cell (WBC) Count 16.80 10x3/uL (4.8-10.8)
[2025-03-09 04:31] LABS: Anion Gap 13 mmol/L (10-20); BUN (Urea Nitrogen) 15 mg/dL (8.4-25.7); Calc. Creatinine Clearance 112 mL/min (70-130); Calcium 8.9 mg/dL (7.8-10.44); Carbon Dioxide 24 mmol/L (23-31); Chloride 108 mmol/L (98-107); Glucose 117 mg/dL (80-115); Potassium 3.2 mmol/L (3.5-5.1); Sodium 142 mmol/L (136-145)
[2025-03-09] MEDS ORDERED: EPINEPHrine 1 MG/10 ML Abboject SYRINGE ONE (06:05)
[2025-03-09] MEDS ORDERED: Sodium Bicarb 50 MEQ/50 ML Abboject 8.4% SYRINGE ONE (06:05)
[2025-03-09] MEDS ORDERED: NOREPINEPHRINE 8 MG/250 ML-D5W 250 ML IVPB SCH (06:15)
[2025-03-09] MEDS ORDERED: Propofol BOLUS 1,000 MG/100 ML VIAL IV PRN (06:15)
[2025-03-09] MEDS ORDERED: Fentanyl BOLUS 100 ML IVPB PRN (06:15)
[2025-03-09 06:37] LABS: Magnesium 2.2 mg/dL (1.6-2.6)
[2025-03-09] MEDS: Norepinephrine 8 MG/0.9% NS 250 ML IVPB SCH (07:02)
[2025-03-09] MEDS: Vasopressin In 0.9 % NaCl 40 UNIT in Premix 1 BAG IV SCH (07:02)
[2025-03-09] MEDS: Ventilator Sedation Protocol 1 EACH FS ONE (08:28)
[2025-03-09] MEDS: D5 NS w/ 40 mEq KCl 1,000 ML IV SCH (17:32)
[2025-03-10 04:52] LABS: #Basophils Less than 0.03 10x3/uL (0.0-0.2); #Eosinophils Less than 0.03 10x3/uL (0.0-0.7); #Monocytes 0.82 10x3/uL (0.11-0.59); #Neutrophils 15.13 10x3/uL (1.40-6.50); %Basophils 0.1 % (0.0-1.0); %Eosinophils 0.1 % (0.0-10.0); %Lymphocytes 5.8 % (21.0-51.0); %Monocytes 4.8 % (0.0-10.0); %Neutrophils 88.6 % (42.0-75.0); Hematocrit 28.6 % (42.0-52.0); Hemoglobin 9.4 g/dL (14.0-18.0); Mean Corpuscular Hemoglobin 28.8 pg (27.0-31.0); Mean Corpuscular Volume 87.7 fL (78.0-98.0); Platelet Count 380 10x3/uL (130-400); Red Blood Cell (RBC) Count 3.26 mill/uL (4.70-6.10); White Blood Cell (WBC) Count 17.08 10x3/uL (4.8-10.8)
[2025-03-10 05:26] LABS: Anion Gap 14 mmol/L (10-20); BUN (Urea Nitrogen) 28 mg/dL (8.4-25.7); Calc. Creatinine Clearance 51 mL/min (70-130); Calcium 8.3 mg/dL (7.8-10.44); Carbon Dioxide 26 mmol/L (23-31); Chloride 109 mmol/L (98-107); Glucose 118 mg/dL (80-115); Potassium 3.7 mmol/L (3.5-5.1); Sodium 145 mmol/L (136-145)
[2025-03-10] MEDS: Mupirocin 1 GM TUBE NASAL DECOLONIZATION NASAL SCH (08:18)
[2025-03-10] MEDS ORDERED: QUEtiapine 25 MG TAB PER TUBE PRN (14:46)
[2025-03-10] MEDS ORDERED: PHOS-NAK 1 PKT PACK PER TUBE PRN (14:48)
[2025-03-10 15:24] VITALS: BMI 21.8
[2025-03-10] MEDS: D5 NS w/ 40 mEq KCl 1,000 ML IV SCH (18:02)
[2025-03-10] MEDS: QUEtiapine 25 MG TAB PER TUBE SCH (20:54)
[2025-03-10] MEDS: Senokot S 8.6-50 MG TAB PER TUBE SCH (20:54)
[2025-03-11 04:40] LABS: #Basophils Less than 0.03 10x3/uL (0.0-0.2); #Eosinophils 0.08 10x3/uL (0.0-0.7); #Monocytes 0.61 10x3/uL (0.11-0.59); #Neutrophils 13.78 10x3/uL (1.40-6.50); %Basophils 0.1 % (0.0-1.0); %Eosinophils 0.5 % (0.0-10.0); %Lymphocytes 5.2 % (21.0-51.0); %Monocytes 4.0 % (0.0-10.0); %Neutrophils 89.7 % (42.0-75.0); Hematocrit 28.4 % (42.0-52.0); Hemoglobin 9.0 g/dL (14.0-18.0); Mean Corpuscular Hemoglobin 28.7 pg (27.0-31.0); Mean Corpuscular Volume 90.4 fL (78.0-98.0); Platelet Count 251 10x3/uL (130-400); Red Blood Cell (RBC) Count 3.14 mill/uL (4.70-6.10); White Blood Cell (WBC) Count 15.36 10x3/uL (4.8-10.8)
[2025-03-11 05:11] LABS: Anion Gap 12 mmol/L (10-20); BUN (Urea Nitrogen) 28 mg/dL (8.4-25.7); Calc. Creatinine Clearance 66 mL/min (70-130); Calcium 8.2 mg/dL (7.8-10.44); Carbon Dioxide 22 mmol/L (23-31); Chloride 117 mmol/L (98-107); Glucose 109 mg/dL (80-115); Potassium 4.1 mmol/L (3.5-5.1); Sodium 147 mmol/L (136-145)
[2025-03-11] MEDS: Sertraline 25 MG TAB PER TUBE SCH (08:47)
[2025-03-11] MEDS: Losartan 25 MG TAB PER TUBE SCH (08:48)
[2025-03-11] MEDS: Acetaminophen 325 MG TAB PER TUBE PRN (21:21)
[2025-03-12 04:56] LABS: #Basophils Less than 0.03 10x3/uL (0.0-0.2); #Eosinophils 0.08 10x3/uL (0.0-0.7); #Monocytes 0.85 10x3/uL (0.11-0.59); #Neutrophils 16.19 10x3/uL (1.40-6.50); %Basophils 0.1 % (0.0-1.0); %Eosinophils 0.4 % (0.0-10.0); %Lymphocytes 3.9 % (21.0-51.0); %Monocytes 4.7 % (0.0-10.0); %Neutrophils 90.5 % (42.0-75.0); Hematocrit 26.5 % (42.0-52.0); Hemoglobin 8.2 g/dL (14.0-18.0); Mean Corpuscular Hemoglobin 29.1 pg (27.0-31.0); Mean Corpuscular Volume 94.0 fL (78.0-98.0); Platelet Count 258 10x3/uL (130-400); Red Blood Cell (RBC) Count 2.82 mill/uL (4.70-6.10); White Blood Cell (WBC) Count 17.91 10x3/uL (4.8-10.8)
[2025-03-12 05:06] VITALS: TEMP 98.7
[2025-03-12 05:10] LABS: Anion Gap 12 mmol/L (10-20); BUN (Urea Nitrogen) 28 mg/dL (8.4-25.7); Calc. Creatinine Clearance 59 mL/min (70-130); Calcium 8.0 mg/dL (7.8-10.44); Carbon Dioxide 19 mmol/L (23-31); Chloride 122 mmol/L (98-107); Glucose 129 mg/dL (80-115); Potassium 4.5 mmol/L (3.5-5.1); Sodium 148 mmol/L (136-145)
[2025-03-12 07:37] VITALS: BP 116/73
[2025-03-12] MEDS: Enoxaparin 40 MG (0.4 mL) SYRINGE SC SCH (09:47)
== END 2025-03-12 11:31 | disposition short-term general hospital (02) | DRG 811 ==
LOC: EEVIPCON 21:30 → ERS 21:30 → PCU 02-17 00:22 → CCU 02-19 18:51 → PCU 03-06 14:29 → 2NO 03-07 23:51 → CCU 03-09 06:22
PROVIDERS: ADMIT Internal Medicine; ATTEND Family Medicine
PROC: 30233N1 Transfusion of Nonautologous Red Blood Cells into Peripheral Vein, Percutaneous Approach (ICD-10-PCS; 2025-02-17)
PROC: 0BH17EZ Insertion of Endotracheal Airway into Trachea, Via Natural or Artificial Opening (ICD-10-PCS; 2025-02-19)
PROC: 5A1945Z Respiratory Ventilation, 24-96 Consecutive Hours (ICD-10-PCS; 2025-02-19)
PROC: 3E03329 Introduction of Other Anti-infective into Peripheral Vein, Percutaneous Approach (ICD-10-PCS; 2025-02-20)
PROC: 5A1955Z Respiratory Ventilation, Greater than 96 Consecutive Hours (ICD-10-PCS; 2025-02-21)
PROC: 3E033XZ Introduction of Vasopressor into Peripheral Vein, Percutaneous Approach (ICD-10-PCS; 2025-02-21)
PROC: 0DJ08ZZ Inspection of Upper Intestinal Tract, Via Natural or Artificial Opening Endoscopic (ICD-10-PCS; 2025-02-23)
PROC: 30233J1 Transfusion of Nonautologous Serum Albumin into Peripheral Vein, Percutaneous Approach (ICD-10-PCS; 2025-02-25)
PROC: 5A0935A Assistance with Respiratory Ventilation, Less than 24 Consecutive Hours, High Flow/Velocity Cannula (ICD-10-PCS; 2025-02-26)
PROC: 5A09357 Assistance with Respiratory Ventilation, Less than 24 Consecutive Hours, Continuous Positive Airway Pressure (ICD-10-PCS; 2025-02-26)
PROC: 5A0935A Assistance with Respiratory Ventilation, Less than 24 Consecutive Hours, High Flow/Velocity Cannula (ICD-10-PCS; 2025-02-27)
PROC: 5A09357 Assistance with Respiratory Ventilation, Less than 24 Consecutive Hours, Continuous Positive Airway Pressure (ICD-10-PCS; 2025-02-28)
PROC: 5A09357 Assistance with Respiratory Ventilation, Less than 24 Consecutive Hours, Continuous Positive Airway Pressure (ICD-10-PCS; 2025-03-01)
PROC: 5A0935A Assistance with Respiratory Ventilation, Less than 24 Consecutive Hours, High Flow/Velocity Cannula (ICD-10-PCS; 2025-03-01)
PROC: 4A133R1 Monitoring of Arterial Saturation, Peripheral, Percutaneous Approach (ICD-10-PCS; principal; 2025-03-02)
PROC: 0B9F8ZZ Drainage of Right Lower Lung Lobe, Via Natural or Artificial Opening Endoscopic (ICD-10-PCS; 2025-03-02)
PROC: 0B9D8ZZ Drainage of Right Middle Lung Lobe, Via Natural or Artificial Opening Endoscopic (ICD-10-PCS; 2025-03-02)
PROC: 5A1955Z Respiratory Ventilation, Greater than 96 Consecutive Hours (ICD-10-PCS; 2025-03-02)
PROC: 5A12012 Performance of Cardiac Output, Single, Manual (ICD-10-PCS; 2025-03-09)
PROC: 0CHY7BZ Insertion of Airway into Mouth and Throat, Via Natural or Artificial Opening (ICD-10-PCS; 2025-03-09)
PROC: 5A1945Z Respiratory Ventilation, 24-96 Consecutive Hours (ICD-10-PCS; 2025-03-09)
PROC: XX20X89 Monitoring of Brain Electrical Activity, Computer-aided Detection and Notification, New Technology Group 9 (ICD-10-PCS; 2025-03-10)
DX: D64.9 Anemia, unspecified (principal); G93.41 Metabolic encephalopathy; I46.9 Cardiac arrest, cause unspecified; J18.9 Pneumonia, unspecified organism; I21.A1 Myocardial infarction type 2; J69.0 Pneumonitis due to inhalation of food and vomit; N17.9 Acute kidney failure, unspecified; E87.29 Other acidosis; M48.55XA Collapsed vertebra, not elsewhere classified, thoracolumbar region, initial encounter for fracture; I47.20 Ventricular tachycardia, unspecified; I47.21 Torsades de pointes; F05 Delirium due to known physiological condition; Z51.5 Encounter for palliative care; E03.9 Hypothyroidism, unspecified; Z79.899 Other long term (current) drug therapy; I10 Essential (primary) hypertension; E78.5 Hyperlipidemia, unspecified; Z98.890 Other specified postprocedural states; E87.6 Hypokalemia; E83.51 Hypocalcemia; F41.9 Anxiety disorder, unspecified; J44.9 Chronic obstructive pulmonary disease, unspecified; R29.818 Other symptoms and signs involving the nervous system; D72.829 Elevated white blood cell count, unspecified; R11.2 Nausea with vomiting, unspecified; R00.1 Bradycardia, unspecified; E83.42 Hypomagnesemia; N40.0 Benign prostatic hyperplasia without lower urinary tract symptoms; R13.10 Dysphagia, unspecified; R53.81 Other malaise; R91.8 Other nonspecific abnormal finding of lung field; K25.9 Gastric ulcer, unspecified as acute or chronic, without hemorrhage or perforation; Z79.82 Long term (current) use of aspirin
CPT/HCPCS: 36415; 36416; 36430; 36600; 70450; 70553; 71045; 71260; 74177; 80048; 80053; 80076; 80202; 82140; 82274; 82550; 82607; 82728; 82805; 83010; 83540; 83550; 83605; 83690; 83735; 83880; 84100; 84132; 84145; 84484; 85025; 85046; 85610; 86850; 86900; 86901; 87040; 87070; 87077; 87081; 87205; 87428; 93005; 93010; 93306; 94002; 94003; 94640; 94660; 95700; 95711; 95812; 95813; 95816; 95957; 96361; 96374; J0165; J0360; J0692; J1644; J1650; J1940; J2060; J2250; J2405; J2470; J2704; J2765; J2919; J3373; J3375; J3475; J3480; J7030; J7050; J7120; J7626; P9016; P9047; Q9967